=== PATIENT | male | born 1975 | race Caucasian/White ===

== ENCOUNTER 2023-12-17 18:21 | Emergency (ER) | payer SELFPAY ==
[~2023-12-17] VITALS: Ht 180.3 cm; Wt 79.4 kg
[2023-12-17 18:34] VITALS: BP 126/86; PULSE 74; RESP 18; TEMP 98.6; O2SAT 98
[2023-12-17] MEDS: IBUPROFEN 600 MG TAB PO ONE (19:13)
[2023-12-17] MEDS: CLINDAMYCIN 600 MG/4 ML VIAL IM ONE (19:18)
[2023-12-17] MEDS: BACITRACIN OINT 500 UNITS/GM PKT TP ONE (19:20)
[2023-12-17] MEDS: LIDOCAINE MPF 1% 10 MG/ML VIAL INJ ONE (19:26)
[2023-12-17] MEDS ORDERED: BACITRACIN OINT 500 UNITS/GM PKT TP ONE (20:12)
[2023-12-17] MEDS ORDERED: ACET-2619 PO (20:22)
[2023-12-17] MEDS ORDERED: IBUP-2213 PO (20:22)
[2023-12-17] MEDS ORDERED: CLIN300C2 PO (20:22)
== END 2023-12-17 20:56 | disposition home or self-care (01) ==
LOC: MED 18:21
DX: S61.213A Laceration without foreign body of left middle finger without damage to nail, initial encounter (principal); S61.215A Laceration without foreign body of left ring finger without damage to nail, initial encounter; W26.8XXA Contact with other sharp object(s), not elsewhere classified, initial encounter; Y93.89 Activity, other specified; Y92.89 Other specified places as the place of occurrence of the external cause; Y99.8 Other external cause status; Z79.899 Other long term (current) drug therapy
CPT/HCPCS: 12001; 73130; 90471; 90715; 96372; 99284; J2001; J3490

== ENCOUNTER 2023-12-19 14:45 | Emergency (ER) | payer SELFPAY ==
[~2023-12-19] VITALS: Ht 170.2 cm; Wt 71.8 kg
[~2023-12-19 14:45] MED LIST: ACET-2619 PO; CLIN300C2 PO; IBUP-2213 PO
[2023-12-19 14:59] VITALS: BP 139/91; PULSE 71; RESP 18; TEMP 97.7; O2SAT 100
== END 2023-12-19 16:37 | disposition home or self-care (01) ==
LOC: MED 14:45
DX: S61.213D Laceration without foreign body of left middle finger without damage to nail, subsequent encounter (principal); S61.214D Laceration without foreign body of right ring finger without damage to nail, subsequent encounter; Z48.00 Encounter for change or removal of nonsurgical wound dressing; Z88.0 Allergy status to penicillin; Z79.899 Other long term (current) drug therapy; X58.XXXD Exposure to other specified factors, subsequent encounter
CPT/HCPCS: 99281